=== PATIENT | male | born 1975 | race Caucasian/White ===

== ENCOUNTER 2020-04-28 10:41 | Emergency (ER) | payer BC ==
[~2020-04-28] VITALS: Ht 180.3 cm; Wt 86.2 kg
[2020-04-28] MEDS ORDERED: ROSU40TA23 (10:55)
[2020-04-28] MEDS ORDERED: LISI40TA (10:55)
[2020-04-28] MEDS ORDERED: MTP100TCR (10:55)
[2020-04-28] MEDS ORDERED: LACTATED RINGERS 1,000 ML IV ONE (11:11)
[2020-04-28] MEDS ORDERED: SCOPOLAMINE 1.5 MG (TRANSDERM-SCOP) PATCH TD ONE (11:15)
[2020-04-28] MEDS ORDERED: ONDANSETRON 4 MG/2 ML (SDV) Z0FRAN IVP ONE (11:15)
[2020-04-28 11:53] LABS: BASOPHILS # (AUTO) 0.1 10^3/uL (0.0-0.1); BASOPHILS % (AUTO) 1 % (0-10); EOSINOPHILS # (AUTO) 0.1 10^3/uL (0.0-0.3); EOSINOPHILS % (AUTO) 1 % (0-10); HEMATOCRIT 41 % (40-54); HEMOGLOBIN 14.4 G/DL (13.3-17.7); LYMPHOCYTES # (AUTO) 2.1 X 10^3 (1.0-4.0); LYMPHOCYTES % (AUTO) 28 % (12-44); MEAN CORPUSCULAR HEMOGLOBIN 32 PG (25-34); MEAN CORPUSCULAR HGB CONC 35 G/DL (32-36); MEAN CORPUSCULAR VOLUME 91 FL (80-99); MEAN PLATELET VOLUME 10.2 FL (7.4-10.4); MONOCYTES # (AUTO) 0.8 X 10^3 (0.0-1.0); MONOCYTES % (AUTO) 10 % (0-12); NEUTROPHILS # (AUTO) 4.5 X 10^3 (1.8-7.8); NEUTROPHILS % (AUTO) 60 % (42-75); PLATELET COUNT 233 10^3/uL (130-400); RED CELL DISTRIBUTION WIDTH 13.1 % (10.0-14.5); WHITE BLOOD COUNT 7.5 10^3/uL (4.3-11.0)
[2020-04-28 12:05] LABS: ALBUMIN 4.6 GM/DL (3.2-4.5); CHLORIDE 104 MMOL/L (98-107); POTASSIUM 4.3 MMOL/L (3.6-5.0); SODIUM 137 MMOL/L (135-145)
[2020-04-28 12:06] LABS: PROTHROMBIN TIME PATIENT 13.1 SEC (12.2-14.7)
[2020-04-28 12:07] LABS: GLUCOSE 94 MG/DL (70-105); TOTAL PROTEIN 7.8 GM/DL (6.4-8.2)
[2020-04-28 12:08] LABS: CARBON DIOXIDE 22 MMOL/L (21-32)
--- NOTE | 2020-04-28 12:08 | Diagnostic Imaging Report ---
PROCEDURE: CT cervical spine without contrast. TECHNIQUE: Multiple contiguous axial images were obtained through the cervical spine without the use of intravenous contrast. Sagittal and coronal reformations were then performed. Auto Exposure Controls were utilized during the CT exam to meet ALARA standards for radiation dose reduction. INDICATION: Neck pain. Dizziness. Left shoulder radiculopathy. COMPARISON: None. FINDINGS: The spine is visualized to the T3 level. No acute fracture or dislocation is seen in the cervical spine. There is slight left convexity curvature of the cervical spine. The craniocervical junction is intact. Vertebral body heights and disc spaces are maintained. No focal osseous lesions are seen. No high density material seen within the spinal canal. The lung apices demonstrate a small amount of paraseptal emphysema. The soft tissues of the neck are unremarkable. IMPRESSION: 1. No acute fracture or dislocation in the cervical spine. Dictated by: Dictated on workstation # [id number]
[2020-04-28 12:09] LABS: BILIRUBIN,TOTAL 0.6 MG/DL (0.1-1.0)
--- NOTE | 2020-04-28 12:09 | Diagnostic Imaging Report ---
INDICATION: Dizziness and blurred vision. TECHNIQUE: Multiple contiguous axial images were obtained through the brain without the use of intravenous contrast. Auto Exposure Controls were utilized during the CT exam to meet ALARA standards for radiation dose reduction. COMPARISON: There are no prior studies for comparison. FINDINGS: There are no extra-axial fluid collections. No intracranial hemorrhage. No intracranial mass or mass effect. No midline shift. The ventricles are normal in size and position. There were no focal parenchymal abnormalities in the brain. Calvarial windows show no acute bone abnormality. There is some mucosal thickening in the ethmoid air cells and left maxillary sinus and to lesser degree in the right maxillary sinus. IMPRESSION: No acute intracranial abnormality. Evidence of sinus disease as described above. Dictated by: Dictated on workstation # [id number]
[2020-04-28 12:11] LABS: ALKALINE PHOSPHATASE 76 U/L (40-136); CREATININE SERUM 0.88 MG/DL (0.60-1.30); GFR ESTIMATED > 60
[2020-04-28 12:12] LABS: BUN/CREATININE RATIO 19
[2020-04-28 12:14] LABS: ALANINE AMINOTRANSFERASE 16 U/L (0-55)
--- NOTE | 2020-04-28 12:34 | ED General ---
General Chief Complaint: Dizziness/Syncope Stated Complaint: DIZZINESS, NOT FEELING RIGHT Nursing Triage Note: PT AMB TO RM 6 WITH COMPLAINT OF DIZZINESS THAT STARTED AROUND 0830. STATES HE BECAME DIZZY AND VOMITED. 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, HE BECAME SUDDENLY VERY DIZZY --HE HAD A CAR UP ON A RACK AND WAS STANDING UNDER IT AND LOOKING UP, WITH HEAD TILTED BACK, AND WHEN HE LOOKED BACK DOWN, HE SUDDENLY BECAME DIZZY STATES "IT MAKES MY STOMACH UPSET AND IT THROWS ME OFF ON MY WALKING" STATES HIS VISION IS "JIGGLY" AT TIMES WHEN HE TRIES TO LOOK AT SOMETHING C/O SLIGHT SORENESS TO BACK OF NECK NO HEADACHE NO PARESTHESIAS OR MOTOR DEFICITS NO FEVER NO URI/SINUS SYMPTOMS OR RECENT ILLNESS NO COUGH/CONGESTION NO EAR PAIN OR CHANGES IN HEARING NO CHEST PAIN NO SHORTNESS OF BREATH NO PALPITATIONS NO SYNCOPE NO HISTORY OF SIMILAR STATES HE HAS NOT EATEN TODAY, AND HAS ONLY HAD COFFEE TO DRINK PCP: DR. ANDERSON IN [place], [place] Allergies and Home Medications Allergies Coded Allergies: No Known Drug Allergies (Unverified , 04/28/20) Home Medications Meclizine HCl 25 Mg Tablet, 50 MG PO Q6 PRN for DIZZINESS Prescribed by: ISRAEL LAL on 04/28/20 1444 Ondansetron 8 Mg Tab.rapdis, 8 MG PO Q4H PRN for NAUSEA/VOMITING Prescribed by: ISRAEL LAL on 04/28/20 1444 Scopolamine 1 Each Patch.td72, 1 EACH TD Q72H Prescribed by: ISRAEL LAL on 04/28/20 1444 Patient Home Medication List Home Medication List Reviewed: Yes Review of Systems Review of Systems Constitutional: see HPI; No chills, No diaphoresis; dizziness; No fever, No malaise, No weakness EENTM: see HPI, blurred vision; No ear pain, No eye pain, No vision loss, No nose congestion, No throat pain Respiratory: no symptoms reported; No cough, No short of breath, No wheezing Cardiovascular: no symptoms reported; No chest pain, No edema, No palpitations, No syncope Gastrointestinal: see HPI; No abdominal pain, No diarrhea; nausea; No vomiting Genitourinary: no symptoms reported Musculoskeletal: see HPI; No back pain; neck pain Skin: no symptoms reported Psychiatric/Neurological: See HPI (DIZZINESS, GAIT DISTURBANCE); Denies Headache, Denies Numbness, Denies Paresthesia, Denies Seizure, Denies Tingling, Denies Tremors, Denies Weakness Hematologic/Lymphatic: No Symptoms Reported Immunological/Allergic: no symptoms reported Past Ocvwjat-Uuxvfc-Glouxn Hx Past Med/Social Hx: Reviewed and Corrections made Patient Social History Alcohol Use: Occasionally Uses Recreational Drug Use: No Smoking Status: Former Smoker (> 1 PPD, QUIT 07/2015) Type Used: Cigarettes Recent Foreign Travel: No Contact w/Someone Who Travel: No Recent Infectious Disease Expo: No Recent Hopitalizations: No Immunizations Up To Date Tetanus Booster (TDap): Unknown PED Vaccines UTD: Yes Seasonal Allergies Seasonal Allergies: No Past Medical History Surgeries: Yes (INGUINAL HERNIA;R CARPAL TUNNEL & ULNAR NERVE TRANSPOSITION;R KNEE SCOPE) Abdominal, Orthopedic, Tonsillectomy Respiratory: No Cardiac: Yes (TACHYCARDIA) High Cholesterol, Hypertension, Irregular Heartbeat Neurological: No Genitourinary: No Gastrointestinal: Yes (INGUINAL HERNIA REPAIR) Musculoskeletal: Yes (R CARPAL TUNNEL & ULNAR NERVE TRANSPOSITION;R KNEE SCOPE) Endocrine: No HEENT: No Cancer: No Psychosocial: No Integumentary: No Blood Disorders: No Physical Exam Vital Signs Vital Signs - First Documented 04/28/20 10:46 Temp 36.7 Pulse 81 Resp 20 B/P (MAP) 167/112 (130) Pulse Ox 98 O2 Delivery Room Air Capillary Refill : Less Than 3 Seconds Height, Weight, BMI Height: '" Weight: lbs. oz. kg; 26.00 BMI Method: General Appearance: No Apparent Distress, WD/WN HEENT: PERRL/EOMI, TMs Normal, Normal ENT Inspection, Pharynx Normal, Moist Mucous Membranes Neck: Full Range of Motion, Normal Inspection, Non Tender, Supple; No Carotid Bruit, No JVD Respiratory: Normal Breath Sounds, No Accessory Muscle Use, No Respiratory Distress Cardiovascular: Regular Rate, Rhythm, No Edema, No JVD, No Murmur, Normal Peripheral Pulses Gastrointestinal: Normal Bowel Sounds, No Organomegaly, No Pulsatile Mass, Non Tender, Soft Back: Normal Inspection, No CVA Tenderness, No Vertebral Tenderness Extremity: Normal Capillary Refill, Normal Inspection, Normal Range of Motion, Non Tender, No Calf Tenderness, No Pedal Edema Neurologic/Psychiatric: Alert, Oriented x3, No Motor/Sensory Deficits, Normal Mood/Affect, commissioning agent II-XII Norm as Tested, Abnormal Gait, Other (SLIGHTLY OFF BAL ANCE) Skin: Normal Color, Warm/Dry Progress/Results/Core Measures Suspected Sepsis Recent Fever Within 48 Hours: No Infection Criteria Present: None New/Unexplained Altered Menta: No Sepsis Screen: No Definite Risk SIRS Temperature: Pulse: 81 Respiratory Rate: 20 Laboratory Tests 04/28/20 11:45: White Blood Count 7.5 Blood Pressure 167 /112 Mean: 130 Laboratory Tests 04/28/20 11:45: Creatinine 0.88, INR Comment 1.0, Platelet Count 233, Total Bilirubin 0.6 Results/Orders Lab Results Laboratory Tests Test 04/28/20 11:45 04/28/20 11:46 04/28/20 13:10 Range/Units White Blood Count 7.5 4.3-11.0 10^3/uL Red Blood Count 4.53 4.35-5.85 10^6/uL Hemoglobin 14.4 13.3-17.7 G/DL Hematocrit 41 40-54 % Mean Corpuscular Volume 91 80-99 FL Mean Corpuscular Hemoglobin 32 25-34 PG Mean Corpuscular Hemoglobin Concent 35 32-36 G/DL Red Cell Distribution Width 13.1 10.0-14.5 % Platelet Count 233 130-400 10^3/uL Mean Platelet Volume 10.2 7.4-10.4 FL Neutrophils (%) (Auto) 60 42-75 % Lymphocytes (%) (Auto) 28 12-44 % Monocytes (%) (Auto) 10 0-12 % Eosinophils (%) (Auto) 1 0-10 % Basophils (%) (Auto) 1 0-10 % Neutrophils # (Auto) 4.5 1.8-7.8 X 10^3 Lymphocytes # (Auto) 2.1 1.0-4.0 X 10^3 Monocytes # (Auto) 0.8 0.0-1.0 X 10^3 Eosinophils # (Auto) 0.1 0.0-0.3 10^3/uL Basophils # (Auto) 0.1 0.0-0.1 10^3/uL Prothrombin Time 13.1 12.2-14.7 SEC INR Comment 1.0 0.8-1.4 Activated Partial Thromboplast Time 29 24-35 SEC Sodium Level 137 135-145 MMOL/L Potassium Level 4.3 3.6-5.0 MMOL/L Chloride Level 104 98-107 MMOL/L Carbon Dioxide Level 22 21-32 MMOL/L Anion Gap 11 5-14 MMOL/L Blood Urea Nitrogen 17 7-18 MG/DL Creatinine 0.88 0.60-1.30 MG/DL Estimat Glomerular Filtration Rate > 60 BUN/Creatinine Ratio 19 Glucose Level 94 70-105 MG/DL Calcium Level 10.0 8.5-10.1 MG/DL Corrected Calcium 8.5-10.1 MG/DL Magnesium Level 2.0 1.6-2.4 MG/DL Total Bilirubin 0.6 0.1-1.0 MG/DL Aspartate Amino Transf (AST/SGOT) 19 5-34 U/L Alanine Aminotransferase (ALT/SGPT) 16 0-55 U/L Alkaline Phosphatase 76 40-136 U/L Troponin I < 0.028 <0.028 NG/ML Total Protein 7.8 6.4-8.2 GM/DL Albumin 4.6 H 3.2-4.5 GM/DL TSH Wells Testing 0.76 0.35-4.94 UIU/ML Glucometer 99 70-110 MG/DL Urine Color YELLOW Urine Clarity CLEAR Urine pH 6.0 5-9 Urine Specific [place] <=1.005 1.016-1.022 Urine Protein NEGATIVE NEGATIVE Urine Glucose (UA) NEGATIVE NEGATIVE Urine Ketones NEGATIVE NEGATIVE Urine Nitrite NEGATIVE NEGATIVE Urine Bilirubin NEGATIVE NEGATIVE Urine Urobilinogen 0.2 < = 1.0 MG/DL Urine Leukocyte Esterase NEGATIVE NEGATIVE Urine RBC (Auto) NEGATIVE NEGATIVE Urine RBC NONE /HPF Urine WBC NONE /HPF Urine Squamous Epithelial Cells NONE /HPF Urine Crystals NONE /LPF Urine Bacteria NEGATIVE /HPF Urine Casts NONE /LPF Urine Mucus NEGATIVE /LPF Urine Culture Indicated NO My Orders Orders - ISRAEL LAL DO Accucheck Stat ONCE (04/28/20 11:11) Ed Iv/Invasive Line Start (04/28/20 11:11) Ekg Tracing (04/28/20 11:11) Monitor-Rhythm Ecg Trace Only (04/28/20 11:11) Ct Head Wo-R/O Stroke (04/28/20 11:11) Ct Cervical Spine Wo (04/28/20 11:11) Chest 1 View, Ap/Pa Only (04/28/20 11:11) Cbc With Automated Diff (04/28/20 11:11) Comprehensive Metabolic Panel (04/28/20 11:11) Magnesium (04/28/20 11:11) Protime With Inr (04/28/20 11:11) Partial Thromboplastin Time (04/28/20 11:11) Thyroid Analyzer (04/28/20 11:11) Ua Culture If Indicated (04/28/20 11:11) Troponin I (04/28/20 11:11) Ed Iv/Invasive Line Start (04/28/20 11:11) Lactated Ringers (Lr 1000 Ml Iv Solution (04/28/20 11:11) Ondansetron Injection (Zofran Injectio (04/28/20 11:15) Scopolamine Patch (Transderm-Scop Patch) (04/28/20 11:15) Ct Angio Head/Neck (04/28/20 12:52) Iohexol Injection (Omnipaque 350 Mg/Ml 1 (04/28/20 13:00) Sodium Chloride Flush (Catheter Flush Sy (04/28/20 13:00) Ns (Ivpb) (Sodium Chloride 0.9% Ivpb Bag (04/28/20 13:00) Received Contrast (Hold Metformin- Contr (04/28/20 13:00) Medications Given in ED Current Medications Medications Dose Ordered Sig/Cornel Route Start Time Stop Time Status Last Admin Dose Admin Iohexol 75 ml ONCE ONCE IV 04/28/20 13:00 04/28/20 13:01 DC 04/28/20 14:22 75 ML Lactated Ringer's 1,000 ml @ 0 mls/hr Q0M ONCE IV 04/28/20 11:11 04/28/20 11:13 DC 04/28/20 11:49 1,000 MLS/HR Ondansetron HCl 4 mg ONCE ONCE IVP 04/28/20 11:15 04/28/20 11:16 DC 04/28/20 11:49 4 MG Scopolamine 1.5 mg ONCE ONCE TD 04/28/20 11:15 04/28/20 11:16 DC 04/28/20 11:49 1.5 MG Sodium Chloride 100 ml ONCE ONCE IV 04/28/20 13:00 04/28/20 13:01 DC 04/28/20 14:22 80 ML Vital Signs/I&O 04/28/20 10:46 Temp 36.7 Pulse 81 Resp 20 B/P (MAP) 167/112 (130) Pulse Ox 98 O2 Delivery Room Air Capillary Refill : Less Than 3 Seconds Blood Pressure Mean: 130 Point of Care Testing Finger Stick Blood Glucose: 99 Blood Glucose Action Taken: REPORTED TO DR LAL Progress Note : Progress Note FEELS MUCH BETTER AT DISMISSAL--GAIT IS MUCH IMPROVED. ECG Initial ECG Impression Date: Apr 28, 2020 Initial ECG Impression Time: 11:19 Initial ECG Rate: 69 Initial ECG Rhythm: Normal Sinus Diagnostic Imaging Comments CT HEAD--PER RADIOLOGIST REPORT AT 1233 FINDINGS: There are no extra-axial fluid collections. No intracranial hemorrhage. No intracranial mass or mass effect. No midline shift. The ventricles are normal in size and position. There were no focal parenchymal abnormalities in the brain. Calvarial windows show no acute bone abnormality. There is some mucosal thickening in the ethmoid air cells and left maxillary sinus and to lesser degree in the right maxillary sinus. IMPRESSION: No acute intracranial abnormality. Evidence of sinus disease as described above. CT CERVICAL SPINE--PER RADIOLOGIST REPORT AT 1233 FINDINGS: The spine is visualized to the T3 level. No acute fracture or dislocation is seen in the cervical spine. There is slight left convexity curvature of the cervical spine. The craniocervical junction is intact. Vertebral body heights and disc spaces are maintained. No focal osseous lesions are seen. No high density material seen within the spinal canal. The lung apices demonstrate a small amount of paraseptal emphysema. The soft tissues of the neck are unremarkable. IMPRESSION: 1. No acute fracture or dislocation in the cervical spine. CT ANGIOGRAM HEAD/NECK--PER RADIOLOGIST REPORT AT 1437 FINDINGS: Both common carotid arteries are patent. There is some mild calcified plaquing at the carotid bifurcations bilaterally. The bilateral internal carotid arteries are widely patent. There is some calcified plaque in the carotid siphons bilaterally. The middle cerebral arteries appear to be widely patent. The anterior cerebrals are widely patent. No thromboembolism or large branch occlusion is detected. The vertebral arteries appear to be codominant. The basilar artery is patent. The bilateral posterior cerebral arteries appear to be patent. No thromboembolism is seen. There is some mucosal thickening in the bilateral maxillary sinuses. IMPRESSION: Unremarkable CT angiogram of the head and neck. No thromboembolism, stenosis, or large vessel occlusion is identified. Reviewed: Reviewed by Me Departure Impression Primary Impression: Vertigo Disposition: HOME, SELF-CARE Condition: Improved Departure-Patient Inst. Referrals: NO,LOCAL PHYSICIAN (PCP/Family) Primary Care Physician Patient Instructions: Vertigo (a Type of Dizziness) (DC) Add. Discharge Instructions: HOME, REST AVOID ANY SUDDEN HEAD MOVEMENTS AND AVOID TURNING YOUR HEAD OR MOVING YOUR HEAD UP OR DOWN LEAVE SCOPOLAMINE PATCH ON FOR 3 DAYS NO DRIVING UNTIL YOU ARE CLEARED FOLLOW UP WITH YOUR DR IN 2-3 DAYS FOR FURTHER CARE All discharge instructions reviewed with patient and/or family. Voiced understanding. Scripts Ondansetron (Ondansetron Odt) 8 Mg Tab.rapdis 8 MG PO Q4H PRN for NAUSEA/VOMITING, #10 TAB Prov: ISRAEL LAL DO 04/28/20 Meclizine HCl (Meclizine HCl) 25 Mg Tablet 50 MG PO Q6 PRN for DIZZINESS, #15 TAB Prov: ISRAEL LAL DO 04/28/20 Scopolamine (Transderm-Scop) 1 Each Patch.td72 1 EACH TD Q72H, #3 PATCH Prov: ISRAEL LAL DO 04/28/20 Work/School Note: Work Release Form Date Seen in the Emergency Department: Apr 28, 2020 Return to Work: May 01, 2020 ISRAEL LAL DO Apr 28, 2020 12:34
[2020-04-28 12:35] LABS: TSH (THYROID ANALYZER) 0.76 UIU/ML (0.35-4.94)
--- OUTSIDE RECORDS SUMMARY | 2020-04-28 12:47 | XMS REPORT ---
Author Tommy Pantoja Organization [employer] Address Unknown Phone Unavailable Care Team Providers Care Maritime Officer Name Role Phone PREMA SANCHEZ CP Unavailable Allergies, Adverse Reactions, Alerts Substance Reaction Event Type N.K.D.A. Info Not Available Non Drug Allergy Problems Problem Type Condition Code Onset Dates Condition Statu s Assessment Dental caries K02.9 Active Medications Medication Code System Code Instructions Start Date End Date Status Dosage Lisinopril FORMERLY NAMED [facility] [id number] not def ined Procedures Procedure Coding System Code Date EXTRAC ERUPTED TOOTH/EXPOSED ROOT CPT-4 D7140 Jun 07, 2016 Vital Signs Date/Time: Jun 07, 2016 Blood Pressure Diastolic 81 mmHg Blood Pressure Systolic 138 mmHg Results No Known Results Summary Purpose [employer] Submission
--- OUTSIDE RECORDS SUMMARY | 2020-04-28 12:47 | XMS REPORT ---
Author Tommy Pantoja Organization [employer] Address Unknown Phone Unavailable Care Team Providers Care Vocational Auto Body Instructor Name Role Phone PREMA SANCHEZ CP Unavailable Allergies, Adverse Reactions, Alerts Substance Reaction Event Type N.K.D.A. Info Not Available Non Drug Allergy Problems Problem Type Condition Code Onset Dates Condition Statu s Assessment Dental examination Z01.20 Active Medications Medication Code System Code Instructions Start Date End Date Status Dosage Ethel [facility] [address]-81 5-325 MG Orally every 6 hrs 1 tablet as needed Amoxicillin [facility] [address]-28 500 MG Orally 4 times daily 1 capsule Procedures Procedure Coding System Code Date INTRAORL-PERIAPICAL 1 FILM 47521 CPT-4 D0220 May 16, 2016 BITEWING - SINGLE FILM CPT-4 D0270 May 16, 2016 LTD ORAL EVALUATION - PROBLEM FOCUS CPT-4 D0140 May 16, 2016 Billing Notes on claim CPT-4 EC109 May 16, 2016 Vital Signs Date/Time: May 16, 2016 Blood Pressure Diastolic 88 mmHg Blood Pressure Systolic 132 mmHg Results No Known Results Summary Purpose [employer] Submission
--- OUTSIDE RECORDS SUMMARY | 2020-04-28 12:47 | XMS REPORT ---
Author Author Tommy BANKS Organization [facility] Address [address] [place] [address] Care Team Providers Care Entertainer & Comic Name Role Phone WESTON BANKS Unavailable PROBLEMS Unknown Problems ALLERGIES No Information ENCOUNTERS Encounter Location Date Diagnosis [place] [address] [place] [id number] [place] [phone] Aug, [place] [address] [place] [phone] Jul, [place] [address] [place] [phone] May, Dental caries K02.9 [place] [id number] [place] [phone] Apr, Dental examination Z01.20 IMMUNIZATIONS No Known Immunizations SOCIAL HISTORY Never Assessed REASON FOR VISIT eye exam PLAN OF CARE VITAL SIGNS MEDICATIONS Unknown Medications RESULTS No Results PROCEDURES No Known procedures INSTRUCTIONS MEDICATIONS ADMINISTERED No Known Medications MEDICAL (GENERAL) HISTORY Type Description Date Medical History Hypertension Medical History Bronchitis Surgical History Knee Surgery January 2015
--- OUTSIDE RECORDS SUMMARY | 2020-04-28 12:47 | XMS REPORT ---
Author Author Tommy BANKS Organization [facility] Address [address] [place] [address] Care Team Providers Care Wood Bucker Name Role Phone WESTON BANKS Unavailable PROBLEMS Unknown Problems ALLERGIES No Information ENCOUNTERS Encounter Location Date Diagnosis [place] [address] [place] [id number] [place] [phone] Aug, [place] [address] [place] [id number] [place] [phone] Jul, [place] [address] [place] [id number] [place] [phone] May, Dental caries K02.9 [place] [id number] [place] [phone] Apr, Dental examination Z01.20 IMMUNIZATIONS No Known Immunizations SOCIAL HISTORY Never Assessed REASON FOR VISIT PLAN OF CARE VITAL SIGNS MEDICATIONS Unknown Medications RESULTS No Results PROCEDURES No Known procedures INSTRUCTIONS MEDICATIONS ADMINISTERED No Known Medications MEDICAL (GENERAL) HISTORY Type Description Date Medical History Hypertension Medical History Bronchitis Surgical History Knee Surgery January 2015
--- OUTSIDE RECORDS SUMMARY | 2020-04-28 12:48 | XMS REPORT | Continuity of Care Document ---
Author Organization Unknown Address Unknown Phone Unavailable Allergies There is no data. Medications There is no data. Problems There is no data. Procedures There is no data. Results Test Result Range TSH w/ FREE T4 - 10/07/19 13:58 TSH 0.88 mIU/L 0.40-4.50 T4, FREE 1.3 ng/dL 0.8-1.8 LIPID PANEL - 10/07/19 13:58 CHOLESTEROL, TOTAL 184 mg/dL <200 HDL CHOLESTEROL 35 mg/dL >40 TRIGLYCERIDES 247 mg/dL <150 LDL-CHOLESTEROL 112 mg/dL (calc) NRG CHOL/HDLC RATIO 5.3 (calc) <5.0 NON HDL CHOLESTEROL 149 mg/dL (calc) <13 0 CMP - 10/07/19 13:58 GLUCOSE 82 mg/dL 65-99 UREA NITROGEN (BUN) 16 mg/dL 7-25 CREATININE 0.94 mg/dL 0.60-1.35 eGFR NON-AFR. [place] 98 mL/min/1.73m2 > OR = 60 eGFR 114 mL/min/1.73m2 > OR = 60 BUN/CREATININE RATIO NOT APPLICABLE (calc) 6-22 SODIUM 140 mmol/L 135-146 POTASSIUM 4.4 mmol/L 3.5-5.3 CHLORIDE 103 mmol/L 98-110 CARBON DIOXIDE 27 mmol/L 20-32 CALCIUM 10.0 mg/dL 8.6-10.3 PROTEIN, TOTAL 7.5 g/dL 6.1-8.1 ALBUMIN 4.7 g/dL 3.6-5.1 GLOBULIN 2.8 g/dL (calc) 1.9-3.7 ALBUMIN/GLOBULIN RATIO 1.7 (calc) 1.0-2. 5 BILIRUBIN, TOTAL 0.3 mg/dL 0.2-1.2 ALKALINE PHOSPHATASE 67 U/L 40-115 AST 15 U/L 10-40 ALT 15 U/L 9-46 CBC w/MANUAL DIFF - 10/07/19 13:58 WHITE BLOOD CELL COUNT 10.0 Thousand/uL 3.8-10.8 RED BLOOD CELL COUNT 4.88 Million/uL 4.2 0-5.80 HEMOGLOBIN 15.6 g/dL 13.2-17.1 HEMATOCRIT 44.7 % 38.5-50.0 MCV 91.6 fL 80.0-100.0 MCH 32.0 pg 27.0-33.0 MCHC 34.9 g/dL 32.0-36.0 RDW 12.1 % 11.0-15.0 PLATELET COUNT 351 Thousand/uL 140-400 MPV 11.3 fL 7.5-12.5 ABSOLUTE NEUTROPHILS 6330 cells/uL 1500- 7800 ABSOLUTE MONOCYTES 410 cells/uL 200-950 ABSOLUTE EOSINOPHILS 510 cells/uL 15-500 ABSOLUTE BASOPHILS 0 cells/uL 0-200 NEUTROPHILS 63.3 % NRG LYMPHOCYTES 24.5 % NRG MONOCYTES 4.1 % NRG EOSINOPHILS 5.1 % NRG BASOPHILS 0 % NRG ABSOLUTE BAND NEUTROPHILS 300 cells/uL 0 -750 ABSOLUTE LYMPHOCYTES 2450 cells/uL 850-3 900 BAND NEUTROPHILS 3.0 % NRG PLATELET ESTIMATION ADEQUATE ADEQUATE COMMENT(S) NRG Complete blood count (CBC) with automate d white blood cell (WBC) differential - 04/28/20 11:45 Blood leukocytes automated count (number/volume) 7.5 10*3/uL 4.3-11.0 Blood erythrocytes automated count (number/volume) 4.53 10*6/uL 4.35-5.85 Venous blood hemoglobin measurement (mass/volume) 14.4 g/dL 13.3-17.7 Blood hematocrit (volume fraction) 41 % 40-54 Automated erythrocyte mean corpuscular volume 91 [ foz_us] 80-99 Automated erythrocyte mean corpuscular h emoglobin (mass per erythrocyte) 32 pg 25-34 Automated erythrocyte mean corpuscular h emoglobin concentration measurement (mass/volume) 35 g/dL 32-36 Automated erythrocyte distribution width ratio 13. 1 % 10.0- 14.5 Automated blood platelet count (count/volume) 233 10*3/uL 130-400 Automated blood platelet mean volume measurement 10.2 [foz_us] 7.4-10.4 Automated blood neutrophils/100 leukocytes 60 % 42-75 Automated blood lymphocytes/100 leukocytes 28 % 12-44 Blood monocytes/100 leukocytes 10 % 0-12 Automated blood eosinophils/100 leukocytes 1 % 0-10 Automated blood basophils/100 leukocytes 1 % 0-10 Blood neutrophils automated count (number/volume) 4.5 10*3 1.8-7.8 Blood lymphocytes automated count (number/volume) 2.1 10*3 1.0-4.0 Blood monocytes automated count (number/volume) 0. 8 10*3 0.0-1.0 Automated eosinophil count 0.1 10*3/uL 0 .0-0.3 Automated blood basophil count (count/volume) 0.1 10*3/uL 0.0-0.1 Comprehensive metabolic panel - 04/28/20 11:45 Serum or plasma sodium measurement (moles/volume) 137 mmol/L 135-145 Serum or plasma potassium measurement (moles/volume) 4.3 mmol/L 3.6-5.0 Serum or plasma chloride measurement (moles/volume) 104 mmol/L 98-107 Carbon dioxide 22 mmol/L 21-32 Serum or plasma anion gap determination (moles/volume) 11 mmol/L 5-14 Serum or plasma urea nitrogen measurement (mass/volume ) 17 mg/dL 7-18 Serum or plasma creatinine measurement (mass/volume) 0.88 mg/dL 0.60-1.30 Serum or plasma urea nitrogen/creatinine mass ratio 19 NRG Serum or plasma creatinine measurement w ith calculation of estimated glomerular filtration rate > NRG Serum or plasma glucose measurement (mass/volume) 94 mg/dL 70-105 Serum or plasma calcium measurement (mass/volume) 10.0 mg/dL 8.5-10.1 Serum or plasma total bilirubin measurement (mass/volu me) 0.6 mg/dL 0.1-1.0 Serum or plasma alkaline phosphatase jordyn surement (enzymatic activity/volume) 76 U/L 40-136 Serum or plasma aspartate aminotransfera se measurement (enzymatic activity/volume) 19 U/L 5-34 Serum or plasma alanine aminotransferase measurement (enzymatic activity/volume) 16 U/L 0-55 Serum or plasma protein measurement (mass/volume) 7.8 g/dL 6.4-8.2 Serum or plasma albumin measurement (mass/volume) 4.6 g/dL 3.2-4.5 PT panel in platelet poor plasma by coag ulation assay - 04/28/20 11:45 Prothrombin time (PT) in platelet poor plasma by coagu lation assay 13.1 s 12.2-14.7 INR in platelet poor plasma or blood by coagulation as say 1.0 0.8-1.4 Activated partial thromboplastin time (a PTT) in platelet poor plasma bycoagulation assay - 04/28/20 11:45 Activated partial thromboplastin time (a PTT) in platelet poor plasma bycoagulation assay 29 s 24-35 Magnesium - 04/28/20 11:45 Magnesium 2.0 mg/dL 1.6-2.4 Serum or plasma troponin i.cardiac measu rement (mass/volume) - 04/28/20 11:45 Serum or plasma troponin i.cardiac measurement (mass/v olume) < ng/mL <0.028 Serum or plasma thyrotropin measurement by detection limit <=0.05 miu/l (units/volume) - 04/28/20 11:45 Serum or plasma thyrotropin measurement by detection limit <=0.05 miu/l (units/volume) 0.76 u[iU]/mL 0.35-4.94 Capillary blood glucose measurement by g lucometer (mass/volume) - 04/28/20 11:46 Capillary blood glucose measurement by glucometer (mas s/volume) 99 mg/dL 70-110 Encounters ACCT No. Visit Date/Time Discharge Status Pt. Type Provider Facility Loc./Unit Complaint [id number] 10/07/2019 14:00:00 10/07/2019 23:59: 59 [facility] Outpatient REGINA ANDERSON [facility] [id number] 10/07/2019 14:00:00 Document Registration [id number] 04/28/2020 11:56:00 Document Registration
[2020-04-28] MEDS ORDERED: IOHEXOL 350 MG/ML 100 ML (OMNIPAQUE 350) VIAL IV ONE (13:00)
[2020-04-28] MEDS ORDERED: CATHETER FLUSH 10 ML SYR IV PRN (13:00)
[2020-04-28] MEDS ORDERED: HOLD METFORMIN - RECEIVED CONTRAST 20 ML VIAL IV SCH (13:00)
[2020-04-28] MEDS ORDERED: NS 100 ML (IVPB) BAG IV ONE (13:00)
[2020-04-28 13:21] LABS: BILIRUBIN,URINE NEGATIVE (NEGATIVE); CLARITY,URINE CLEAR; COLOR,URINE YELLOW; GLUCOSE, URINE (UA) NEGATIVE (NEGATIVE); KETONES,URINE NEGATIVE (NEGATIVE); LEUKOCYTE ESTERASE ,URINE NEGATIVE (NEGATIVE); NITRITE,URINE NEGATIVE (NEGATIVE); PROTEIN,URINE NEGATIVE (NEGATIVE)
[2020-04-28 13:29] LABS: BACTERIA,URINE NEGATIVE /HPF
--- NOTE | 2020-04-28 13:43 | Diagnostic Imaging Report ---
INDICATION: Dizziness. TECHNIQUE: A frontal chest was obtained at 1:13 PM. FINDINGS: The heart and mediastinal silhouette are normal in appearance. The lungs are clear. There is no pneumothorax or pleural fluid. IMPRESSION: Negative chest. Dictated by: Dictated on workstation # [id number]
--- NOTE | 2020-04-28 14:27 | Diagnostic Imaging Report ---
PROCEDURE: CT angiography of the head and CT angiography of the neck with and without contrast. TECHNIQUE: Contiguous noncontrast images were obtained from the skull base through the vertex. After intravenous contrast administration, helical CT angiography of the neck was performed. Source data was reformatted into 3D MIP projections. Delayed post contrast acquisition was also obtained. Auto Exposure Controls were utilized during the CT exam to meet ALARA standards for radiation dose reduction. INDICATION: Dizziness. FINDINGS: Both common carotid arteries are patent. There is some mild calcified plaquing at the carotid bifurcations bilaterally. The bilateral internal carotid arteries are widely patent. There is some calcified plaque in the carotid siphons bilaterally. The middle cerebral arteries appear to be widely patent. The anterior cerebrals are widely patent. No thromboembolism or large branch occlusion is detected. The vertebral arteries appear to be codominant. The basilar artery is patent. The bilateral posterior cerebral arteries appear to be patent. No thromboembolism is seen. There is some mucosal thickening in the bilateral maxillary sinuses. IMPRESSION: Unremarkable CT angiogram of the head and neck. No thromboembolism, stenosis, or large vessel occlusion is identified. Dictated by: Dictated on workstation # [id number]
[2020-04-28] MEDS ORDERED: MECL-149 PO (14:44)
[2020-04-28] MEDS ORDERED: ONDA8TAB13 PO (14:44)
[2020-04-28] MEDS ORDERED: SCOP1PAT11 TD (14:44)
[2020-04-28 14:50] VITALS: BP 161/108
== END 2020-04-28 14:51 | disposition home or self-care (01) ==
LOC: EDUNIT# 10:41 → ER 10:42
DX: R42 Dizziness and giddiness (principal); I10 Essential (primary) hypertension; Z87.891 Personal history of nicotine dependence
CPT/HCPCS: 36415; 70450; 70496; 70498; 71045; 72125; 80053; 81000; 82962; 83735; 84443; 84484; 85025; 85610; 85730; 93005; 93041